=== PATIENT | female | born 1945 | race Hispanic/Latino ===

== ENCOUNTER 2019-11-22 19:10 | Emergency (ER) | payer OTHER ==
[~2019-11-22 19:10] MED LIST: ALEN70TA2 PO; SIMV40TA59 PO; TEMA30CA PO
[2019-11-22] MEDS ORDERED: LIDOCAINE HCL 2% VISCOUS 15 ML UDCUP ONE (19:53)
[2019-11-22] MEDS ORDERED: KETOROLAC TROMETHAMINE 15MG/ML ONE (19:54)
[2019-11-22] MEDS ORDERED: ACETAMINOPHEN-CODEINE 300/30MG TAB ONE (19:54)
== END 2019-11-22 20:10 | disposition home or self-care (01) ==
LOC: EDH 19:10
DX: K08.89 Other specified disorders of teeth and supporting structures (principal); M81.0 Age-related osteoporosis without current pathological fracture; E78.00 Pure hypercholesterolemia, unspecified; Z90.49 Acquired absence of other specified parts of digestive tract; Z90.710 Acquired absence of both cervix and uterus; Z98.890 Other specified postprocedural states
CPT/HCPCS: 96372; 99283; J1885